=== PATIENT | female | born 1965 | race Caucasian/White ===

== ENCOUNTER 2017-07-13 09:07 | Emergency (ER) | payer OTHER ==
[~2017-07-13] VITALS: Ht 157.5 cm; Wt 77.1 kg
[2017-07-13 09:12] VITALS: BP_SYST 139
[2017-07-13] MEDS: DIPHENHYDRAMINE INJ 50 MG/ML VIAL IM ONE (09:46)
[2017-07-13 10:11] VITALS: BP_SYST 130
== END 2017-07-13 10:11 | disposition home or self-care (01) ==
LOC: SED 09:07
DX: T78.3XXA Angioneurotic edema, initial encounter (principal); F32.9 Major depressive disorder, single episode, unspecified
CPT/HCPCS: 96372; 99283; J1200

== ENCOUNTER 2017-08-05 23:17 | Emergency (ER) | payer OTHER ==
[~2017-08-05] VITALS: Ht 157.5 cm; Wt 77.1 kg
[2017-08-05 23:17] VITALS: BP_SYST 143
[2017-08-05] MEDS ORDERED: DIPHENHYDRAMINE INJ 50 MG/ML VIAL IM ONE (23:45)
[2017-08-05] MEDS ORDERED: methylPREDNISolone SOD SUCC/PF 62.5 MG/ML VIAL IM ONE (23:45)
[2017-08-06 00:10] VITALS: BP_SYST 139
== END 2017-08-06 00:10 | disposition home or self-care (01) ==
LOC: SED 23:17
DX: T78.40XA Allergy, unspecified, initial encounter (principal); R22.0 Localized swelling, mass and lump, head; F32.9 Major depressive disorder, single episode, unspecified; Z98.890 Other specified postprocedural states; X58.XXXA Exposure to other specified factors, initial encounter
CPT/HCPCS: 96372; 99284; J1200; J2930

== ENCOUNTER 2017-09-09 07:12 | Emergency (ER) | payer OTHER ==
[~2017-09-09] VITALS: Ht 157.5 cm; Wt 77.1 kg
[2017-09-09 07:20] VITALS: BP_SYST 159
--- NOTE | 2017-09-09 07:20 | NUR ---
Brought back to bed 7, triaged at bedside
--- NOTE | 2017-09-09 07:30 | NUR ---
Pt complains of swelling to right eye and face since yesterday. Pt has noted swelling to right eye, pt denies n/v or fever. Pt states is able to see out of right eye with no difficulty. Pt denies eating or touching anything new. Pt is able to communicate in full sentences with no noted SOB. No other injuries/complaints per pt or noted.
[2017-09-09] MEDS ORDERED: DIPHENHYDRAMINE INJ 50 MG/ML VIAL IVP ONE (07:45)
[2017-09-09] MEDS ORDERED: FAMOTIDINE PF 20 MG/2 ML VIAL IVP ONE (07:45)
[2017-09-09] MEDS ORDERED: methylPREDNISolone SOD SUCC/PF 62.5 MG/ML VIAL IVP ONE (07:45)
--- NOTE | 2017-09-09 07:48 | NUR ---
ER at bedside examining patient.
--- NOTE | 2017-09-09 07:54 | NUR ---
Medication was given, pt tolerated well. No noted adverse reaction, will continue to monitor.
[2017-09-09] MEDS ORDERED: NS 500 ML IV ONE (08:15)
--- NOTE | 2017-09-09 08:26 | NUR ---
IV fluids administered. Pt tolerated well. No adverse reactions noted.
--- NOTE | 2017-09-09 08:54 | NUR ---
Patient given written and verbal discharge instructions and verbalizes understanding. ER MD discussed with patient the results and treatment provided. Patient in stable condition. ID arm band removed. IV catheter removed intact and dressing applied, no active bleeding. Rx of atarax and prednisone given. Patient educated on pain management and to follow up with PMD. Pain Scale 0. Opportunity for questions provided and answered.
[2017-09-09 08:56] VITALS: BP_SYST 140
== END 2017-09-09 08:56 | disposition home or self-care (01) ==
LOC: SED 07:12
DX: T78.3XXA Angioneurotic edema, initial encounter (principal); H57.8 Other specified disorders of eye and adnexa; F41.9 Anxiety disorder, unspecified; F32.9 Major depressive disorder, single episode, unspecified
CPT/HCPCS: 96374; 96375; 99284; J1200; J2930; J3490; J7040

== ENCOUNTER 2017-10-24 11:05 | Emergency (ER) | payer OTHER, MEDICAID ==
[~2017-10-24] VITALS: Ht 157.5 cm; Wt 86.2 kg
[2017-10-24 11:13] VITALS: BP_SYST 143
[2017-10-24 11:45] LABS: BILIRUBIN,URINE 1+ (NEGATIVE); BLOOD, URINE NEGATIVE (NEGATIVE); CLARITY/URINE CLEAR (CLEAR); COLOR,URINE ORANGE (YELLOW); GLUCOSE,URINE TRACE (NEGATIVE); KETONES,URINE TRACE (NEGATIVE); LEUKOCYTE ESTERASE ,URINE NEGATIVE (NEGATIVE); NITRITE, URINE POSITIVE (NEGATIVE); PROTEIN URINE 1+ (NEGATIVE)
[2017-10-24 11:59] LABS: BASOPHILS % (AUTO) 0.7 % (0.0-2.0); EOSINOPHILS # (AUTO) 0.2 K/uL (0.0-0.4); EOSINOPHILS % (AUTO) 4.4 % (0.0-4.0); HEMATOCRIT 37.8 % (36-48); HEMOGLOBIN 12.8 g/dL (12.0-16.0); LYMPHOCYTES # (AUTO) 1.1 K/uL (1.0-5.5); LYMPHOCYTES % (AUTO) 19.2 % (20.5-51.5); MEAN CORPUSCULAR HEMOGLOBIN 29 pg (27-31); MEAN CORPUSCULAR HGB CONC 34 % (32-36); MEAN CORPUSCULAR VOLUME 86 fL (79.0-98.0); MONOCYTES # (AUTO) 0.4 K/uL (0.0-1.0); NEUTROPHILS # (AUTO) 3.8 K/uL (1.8-7.7); NEUTROPHILS % (AUTO) 67.7 % (40.0-70.0); PLATELET COUNT (AUTO) 294 K/uL (130-430); RED CELL DISTRIBUTION WIDTH 13.7 % (9.0-15.0); WHITE BLOOD COUNT (AUTO) 5.5 K/uL (4.8-10.8)
[2017-10-24 11:59] LABS: BACTERIA,URINE FEW /HPF (None Seen); RBC,URINE NONE SEEN /HPF (0-3); WBC,URINE 0-3 /HPF (0-3)
[2017-10-24 12:00] LABS: MUCUS,URINE None Seen /LPF (None Seen)
[2017-10-24 12:19] LABS: CALCIUM 9.1 mg/dL (8.4-11.0); CREATININE 0.75 mg/dL (0.55-1.30); POTASSIUM 3.9 mmol/L (3.5-5.1)
[2017-10-24 12:23] LABS: ALBUMIN 3.6 g/dL (3.4-4.8); TOTAL BILIRUBIN 0.3 mg/dL (0.0-1.0)
[2017-10-24] MEDS ORDERED: DIPHENHYDRAMINE INJ 50 MG/ML VIAL IM ONE (13:15)
[2017-10-24 13:30] VITALS: BP_SYST 143
== END 2017-10-24 13:30 | disposition home or self-care (01) ==
LOC: SED 11:05
DX: T78.3XXA Angioneurotic edema, initial encounter (principal)
CPT/HCPCS: 36415; 80053; 81000-TC; 85025; 87086; 96372; 99284; J1200

== ENCOUNTER 2019-02-11 16:59 | Emergency (ER) | payer OTHER, MEDICAID ==
[~2019-02-11] VITALS: Ht 170.2 cm; Wt 84.4 kg
[2019-02-11 17:06] VITALS: BP_SYST 148
[2019-02-11] MEDS ORDERED: LORazepam 1 MG TABLET PO ONE (17:45)
[2019-02-11 18:40] VITALS: BP_SYST 148
== END 2019-02-11 18:40 | disposition home or self-care (01) ==
LOC: SED 16:59
DX: R00.2 Palpitations (principal); R03.0 Elevated blood-pressure reading, without diagnosis of hypertension
CPT/HCPCS: 93005; 99283

== ENCOUNTER 2019-06-17 17:28 | Emergency (ER) | payer MEDICAID, OTHER ==
[~2019-06-17] VITALS: Ht 157.5 cm; Wt 81.6 kg
[2019-06-17 17:37] VITALS: BP_SYST 109
--- NOTE | 2019-06-17 18:21 | NUR ---
Called for pt, unable to locate patient.
--- NOTE | 2019-06-17 18:26 | NUR ---
Patient was apparently outside and wandered back into waiting. Patient was placed in bed 7 at this time. Reports given to Arlette FORREST.
--- NOTE | 2019-06-17 18:45 | NUR ---
Patient to ER bed 08 to gown for evaluation. Side rails up.
--- NOTE | 2019-06-17 18:55 | NUR ---
Mat Rosales at bedside examining patient.
--- NOTE | 2019-06-17 19:00 | NUR ---
Patient arrived in the ED accompanied by her mom, a&o x2, respirations even and unlabored, denied any c/p. Patient's mom stated she was very confused and doesn't recognize her. VS WNL. Will continue to monitor.
[2019-06-17 19:20] VITALS: BP_SYST 109
--- NOTE | 2019-06-17 19:40 | NUR ---
Patient given written and verbal discharge instructions and verbalizes understanding. ER MD discussed with patient the results and treatment provided. Patient in stable condition. ID arm band removed. Rx of Naproxen and Doxycicline given. Patient educated on pain management and to follow up with PMD. Pain Scale 0/10 . Opportunity for questions provided and answered. Medication side effect fact sheet provided.
== END 2019-06-17 19:20 | disposition home or self-care (01) ==
LOC: SED 17:28
DX: J18.9 Pneumonia, unspecified organism (principal); F32.9 Major depressive disorder, single episode, unspecified
CPT/HCPCS: 71045; 93005; 99283

== ENCOUNTER 2019-06-18 04:47 | Emergency (ER) | payer OTHER ==
[~2019-06-18] VITALS: Ht 157.5 cm; Wt 81.6 kg
[2019-06-18 04:50] VITALS: BP_SYST 111
[2019-06-18] MEDS ORDERED: KETOROLAC TROMETHAMINE 15 MG VIAL IVP ONE (05:15)
[2019-06-18 05:45] LABS: BASOPHILS % (AUTO) 0.7 % (0.0-2.0); EOSINOPHILS # (AUTO) 0.2 K/uL (0.0-0.4); EOSINOPHILS % (AUTO) 3.7 % (0.0-4.0); HEMATOCRIT 31.9 % (36-48); LYMPHOCYTES # (AUTO) 1.5 K/uL (1.0-5.5); LYMPHOCYTES % (AUTO) 23.1 % (20.5-51.5); MEAN CORPUSCULAR HEMOGLOBIN 29 pg (27-31); MEAN CORPUSCULAR HGB CONC 35 % (32-36); MEAN CORPUSCULAR VOLUME 85 fL (79.0-98.0); MONOCYTES # (AUTO) 0.4 K/uL (0.0-1.0); MONOCYTES % (AUTO) 6.8 % (1.7-9.3); NEUTROPHILS # (AUTO) 4.3 K/uL (1.8-7.7); NEUTROPHILS % (AUTO) 65.7 % (40.0-70.0); PLATELET COUNT (AUTO) 245 K/uL (130-430); RED BLOOD CELL COUNT(AUTO) 3.77 MIL/uL (4.2-6.2); RED CELL DISTRIBUTION WIDTH 14.6 % (9.0-15.0); WHITE BLOOD COUNT (AUTO) 6.5 K/uL (4.8-10.8)
[2019-06-18 05:58] LABS: CALCIUM 8.6 mg/dL (8.4-11.0); CREATININE 0.81 mg/dL (0.55-1.30); POTASSIUM 3.6 mmol/L (3.5-5.1)
[2019-06-18 06:03] LABS: INR 0.9 (0.8-1.2); PROTHROMBIN TIME 9.3 SECS (9.5-12.5)
[2019-06-18 06:06] LABS: ALBUMIN 3.3 g/dL (3.4-4.8); TOTAL BILIRUBIN 0.2 mg/dL (0.0-1.0)
[2019-06-18 07:15] VITALS: BP_SYST 111
== END 2019-06-18 07:15 | disposition home or self-care (01) ==
LOC: SED 04:47
DX: R07.9 Chest pain, unspecified (principal); F41.9 Anxiety disorder, unspecified
CPT/HCPCS: 36415; 71045; 80053; 83605; 84484; 85025; 85610; 85730; 87040; 93005; 96374; 99284; J1885

== ENCOUNTER → 2019-07-09 | Emergency (ER) | payer OTHER ==
[~2019-07-09] VITALS: Ht 157.5 cm; Wt 81.6 kg
[2019-07-09 22:31] VITALS: BP_SYST 119
[2019-07-10 01:55] LABS: BILIRUBIN,URINE NEGATIVE (NEGATIVE); BLOOD, URINE TRACE (NEGATIVE); CLARITY/URINE CLEAR (CLEAR); COLOR,URINE YELLOW (YELLOW); GLUCOSE,URINE NEGATIVE (NEGATIVE); KETONES,URINE NEGATIVE (NEGATIVE); LEUKOCYTE ESTERASE ,URINE NEGATIVE (NEGATIVE); NITRITE, URINE NEGATIVE (NEGATIVE); PH,URINE 5.5 (5.0-8.0); PROTEIN URINE NEGATIVE (NEGATIVE); UROBILINOGEN,URINE 0.2 (0.2-1.0)
[2019-07-10 01:57] VITALS: BP_SYST 119
[2019-07-10 01:58] LABS: BACTERIA,URINE FEW /HPF (None Seen); WBC,URINE 0-3 /HPF (0-3)
== END | disposition still patient (30) ==
LOC: SED 22:01
DX: R33.9 Retention of urine, unspecified (principal)
CPT/HCPCS: 81000-TC; 99284

== ENCOUNTER 2020-04-16 12:07 | Emergency (ER) | payer OTHER, MEDICAID ==
[~2020-04-16] VITALS: Ht 157.5 cm; Wt 77.1 kg
--- NOTE | 2020-04-16 12:10 | NUR ---
Placed in room 6 . Placed on pharmacy operations manager, blood pressure machine and pulse oximeter. To gown for exam. Side rails up.
--- NOTE | 2020-04-16 12:15 | NUR ---
Pt walked in to ER with c/o anxiety and states "I just want to be put back together." Reports she takes Klonopin and Suboxone but she's out of her Klonopin and doesn't feel good. V/S stable, pt is afebrile. Currently resting in bed, will continue to monitor.
[2020-04-16 12:25] VITALS: BP_SYST 141
[2020-04-16] MEDS ORDERED: LORazepam 2 MG/ML VIAL IM ONE (12:30)
--- NOTE | 2020-04-16 12:31 | NUR ---
ER Dr. Zhao at bedside examining patient.
--- NOTE | 2020-04-16 12:44 | NUR ---
medicated the pt w/ Ativan IM per MD order. Will reassess.
[2020-04-16 13:40] VITALS: BP_SYST 141
--- NOTE | 2020-04-16 13:40 | NUR ---
Patient given written and verbal discharge instructions and verbalizes understanding. ER MD discussed with patient the results and treatment provided. Patient in stable condition. ID arm band removed. Patient educated on pain management and to follow up with PMD. Pain Scale 0/10. Opportunity for questions provided and answered. Medication side effect fact sheet provided.
--- NOTE | 2020-04-16 13:45 | NUR ---
pt released to a responsible adult
== END 2020-04-16 13:40 | disposition home or self-care (01) ==
LOC: SED 12:07
DX: F41.9 Anxiety disorder, unspecified (principal); F32.9 Major depressive disorder, single episode, unspecified
CPT/HCPCS: 96372; 99283; J2060

== ENCOUNTER 2020-08-12 07:18 | Emergency (ER) | payer OTHER, MEDICAID ==
[~2020-08-12] VITALS: Ht 157.5 cm; Wt 90.7 kg
[2020-08-12 07:20] VITALS: BP_SYST 103
--- NOTE | 2020-08-12 07:20 | NUR ---
Patient triaged and placed in waiting room. VSS and patient appears in no acute distress at this time. Accompanied by SELF, awaiting available bed, and MD notified of need for MSE.
--- NOTE | 2020-08-12 07:41 | NUR ---
[facility]
--- NOTE | 2020-08-12 07:44 | NUR ---
TAKEN TO RADIOLOGY VIA WHEELCHAIR
[2020-08-12] MEDS ORDERED: IBUP-1969 PO (07:50)
--- NOTE | 2020-08-12 07:51 | NUR ---
RETURNED TO WAITING ROOM VIA WHEELCHAIR.
[2020-08-12 09:15] VITALS: BP_SYST 103
--- NOTE | 2020-08-12 09:15 | NUR ---
Patient given written and verbal discharge instructions and verbalizes understanding. ER MD discussed with patient the results and treatment provided. Patient in stable condition. ID arm band removed. No Rx given. Patient educated on pain management and to follow up with PMD. Pain Scale 4/10 tolerable for patient . Opportunity for questions provided and answered. Medication side effect fact sheet provided.
== END 2020-08-12 09:15 | disposition home or self-care (01) ==
LOC: SED 07:18
DX: S42.032A Displaced fracture of lateral end of left clavicle, initial encounter for closed fracture (principal); W18.39XA Other fall on same level, initial encounter; Y93.89 Activity, other specified; Y92.89 Other specified places as the place of occurrence of the external cause; Y99.8 Other external cause status
CPT/HCPCS: 73030; 99283

== ENCOUNTER 2020-08-15 14:47 | Emergency (ER) | payer OTHER, MEDICAID, SELFPAY ==
[~2020-08-15 14:47] MED LIST: IBUP-1969 PO
== END 2020-08-15 16:00 | disposition left against medical advice (07) ==
LOC: SED 14:47
DX: M79.18 Myalgia, other site (principal); Z53.21 Procedure and treatment not carried out due to patient leaving prior to being seen by health care provider

== ENCOUNTER 2021-09-02 09:51 | Emergency (ER) | payer OTHER, MEDICAID, SELFPAY ==
[~2021-09-02] VITALS: Ht 157.5 cm; Wt 77.1 kg
[2021-09-02 09:51] VITALS: BP_SYST 104
--- NOTE | 2021-09-02 09:52 | NUR ---
BROUGHT BACK TO BED #3 VIA WHEELCHAIR, PLACED IN BED AND TRIAGED. REPORT GIVEN TO MARILYN
--- NOTE | 2021-09-02 10:09 | NUR ---
ER at bedside examining patient.
--- NOTE | 2021-09-02 10:50 | NUR ---
blood drawn to lab
[2021-09-02 11:03] LABS: BASOPHILS % (AUTO) 0.8 % (0.0-2.0); EOSINOPHILS # (AUTO) 0.4 K/uL (0.0-0.4); EOSINOPHILS % (AUTO) 7.3 % (0.0-4.0); HEMOGLOBIN 11.9 g/dL (12.0-16.0); LYMPHOCYTES # (AUTO) 1.8 K/uL (1.0-5.5); LYMPHOCYTES % (AUTO) 34.9 % (20.5-51.5); MEAN CORPUSCULAR HEMOGLOBIN 26 pg (27-31); MEAN CORPUSCULAR HGB CONC 33 % (32-36); MEAN CORPUSCULAR VOLUME 80 fL (79.0-98.0); MONOCYTES # (AUTO) 0.3 K/uL (0.0-1.0); MONOCYTES % (AUTO) 6.3 % (1.7-9.3); NEUTROPHILS # (AUTO) 2.7 K/uL (1.8-7.7); NEUTROPHILS % (AUTO) 50.7 % (40.0-70.0); PLATELET COUNT (AUTO) 295 K/uL (130-430); RED CELL DISTRIBUTION WIDTH 15.5 % (9.0-15.0); WHITE BLOOD COUNT (AUTO) 5.2 K/uL (4.8-10.8)
[2021-09-02 11:19] LABS: CALCIUM 8.8 mg/dL (8.4-11.0); CREATININE 0.65 mg/dL (0.55-1.30)
[2021-09-02 11:24] LABS: ALBUMIN 3.3 g/dL (3.4-4.8); TOTAL BILIRUBIN 0.2 mg/dL (0.0-1.0)
--- NOTE | 2021-09-02 12:30 | NUR ---
consent signed for ct chest secondary to elevated d karlosmer
--- NOTE | 2021-09-02 13:54 | NUR ---
CARE OF PLAN TO ADMIT FISCUSED WITH PATIENT AND PATIENTS MOTHER
--- NOTE | 2021-09-02 14:23 | NUR ---
TO CT SCAN FOR HEAD CT
[2021-09-02 14:42] LABS: ACETAMINOPHEN < 1 ug/mL (1-30); ALCOHOL, BLOOD < 3 mg/dL (<10)
[2021-09-02 16:08] VITALS: BP_SYST 133
--- NOTE | 2021-09-02 16:10 | NUR ---
Patient given written and verbal discharge instructions and verbalizes understanding. NHI MENDEZ MD discussed with patient the results and treatment provided. Patient in stable condition. ID arm band removed. IV catheter removed intact and dressing applied, no active bleeding. Patient educated on pain management and to follow up with PMD. Pain Scale 0. Opportunity for questions provided and answered. Medication side effect fact sheet provided.
== END 2021-09-02 16:08 | disposition home or self-care (01) ==
LOC: SED 09:51
DX: R60.0 Localized edema (principal); R41.82 Altered mental status, unspecified; F32.9 Major depressive disorder, single episode, unspecified; Z79.899 Other long term (current) drug therapy; Z20.822 Contact with and (suspected) exposure to COVID-19
CPT/HCPCS: 36415; 70450; 71045; 71275; 76376; 80053; 83880; 85025; 85379; 87426; 93005; 99285; G0480; Q9967; G0481; G0482

== ENCOUNTER 2021-09-04 16:54 | Emergency (ER) | payer OTHER, MEDICAID, SELFPAY ==
[~2021-09-04] VITALS: Ht 157.5 cm; Wt 77.1 kg
[2021-09-04 17:00] VITALS: BP_SYST 121
== END 2021-09-04 18:01 | disposition left against medical advice (07) ==
LOC: SED 16:54
DX: M79.89 Other specified soft tissue disorders (principal); Z53.21 Procedure and treatment not carried out due to patient leaving prior to being seen by health care provider

== ENCOUNTER 2022-06-21 10:43 | Emergency (ER) | payer OTHER, MEDICAID ==
[~2022-06-21] VITALS: Ht 157.5 cm; Wt 68.0 kg
[~2022-06-21 10:43] MED LIST changes: +HYDR-3917 PO
[2022-06-21 11:31] VITALS: BP_SYST 119
--- NOTE | 2022-06-21 12:00 | NUR ---
Patient left without being seen.
[2022-06-21] MEDS ORDERED: MORPHINE 4 MG INJ. 4 MG/ML VIAL IVP ONE (15:00)
[2022-06-21] MEDS ORDERED: ONDANSETRON 4 MG ODT TAB PO ONE (15:00)
[2022-06-21] MEDS ORDERED: ONDANSETRON HCL 4 MG/2 ML VIAL IVP ONE (15:00)
== END 2022-06-21 12:00 | disposition left against medical advice (07) ==
LOC: SED 10:43
DX: R11.0 Nausea (principal); Z53.21 Procedure and treatment not carried out due to patient leaving prior to being seen by health care provider